=== PATIENT | female | born 1995 | race Caucasian/White ===

== ENCOUNTER 2019-12-08 11:49 | Emergency (ER) | payer OTHER, SELFPAY ==
[2019-12-08 12:00] VITALS: BP 132/88; PULSE 90; RESP 20; TEMP 36.5; O2SAT 100
--- NOTE | 2019-12-08 12:15 | ED.GENADULT ---
HPI - General Adult General Chief complaint: Urogenital-Female Stated complaint: Urogenital-female Time Seen by Provider: 12/08/19 12:15 Source: patient and RN notes reviewed Mode of arrival: ambulatory Limitations: no limitations History of Present Illness HPI narrative: 24-year-old female presents with urinary complaints for 1 day. Dysuria consist of burning, frequency, and urgency.? Azo at 07:00 this a.m with little relief.? Denies fever or chills. No significant pelvic pain. No vaginal discharge.? No concerns for STDs. Exacerbating factors urinating.? Denies hematuria or vaginal bleeding. Denies being , LMP unknown due to IUD being in place.? No flank pain. Denies nausea, vomiting, and abdominal pain.? Tolerating liquids well.? Remains active. The patient reports she have not been diagnosed with COVID-19. The patient reports she is not waiting for the results of a COVID-19 lab test. The patient reports she do not have fever, chills, weakness, fatigue, myalgia, or facial swelling. The patient reports she do not have a new or worsening cough or shortness of breath. Denies chest pain. The patient reports she do not have any rhinorrhea, congestion, sore throat, and diarrhea. Denies recent traveling. Denies concerns for COVID-19 or exposures been home with limited outdoor exposure except for essential household needs, work, and return home. At this time, patient is not suspected of having COVID-19. Some parts of this dictation were generated by voice recognition software and may contain typographical and/or grammatical inaccuracies. Related Data Allergies Allergy/AdvReac Type Severity Reaction Status Date / Time latex Allergy Mild Rash Verified 03/24/19 11:57 Sulfa (Sulfonamide Allergy Rash Verified 03/24/19 11:56 Antibiotics) Review of Systems Review of Systems: Narrative: CONSTITUTIONAL: Denies fever, chills, sweats. EYES: Denies visual changes, redness, discharge. ENT: Denies rhinorrhea, congestion, sore throat, otalgia. CARDIOVASCULAR: Denies chest pain, palpitations, edema. RESPIRATORY: Denies dyspnea, wheezing, cough. GASTROINTESTINAL: Denies abdominal pain, nausea, vomiting, diarrhea. GENITOURINARY: Complains of dysuria (burning, frequency, and urgency). Denies hematuria, abnormal discharge. SKIN: Denies rash or itching. MUSCULOSKELETAL: Denies acute back pain, joint pain, or myalgia. NEUROLOGIC: Denies numbness or focal weakness. PSYCHIATRIC: Denies anxiety or depression. All systems reviewed & are unremarkable except as noted in HPI and below. 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 Surgical History Surgical History (Updated 12/08/19 @ 12:35 by ELISSA Sam) History of tonsillectomy Family History Family History (Updated 12/08/19 @ 12:35 by ELISSA Sam) Father Alive and well Mother Alive and well Social History Social History (Updated 12/08/19 @ 12:36 by ELISSA Sam) Smoking status: Never smoker Second hand tobacco smoke exposure: No Alcohol intake: current Substance use: never Living arrangements: with family Occupation/Education: occupation Gender identity (if verbalized by the patient): Female Sexual Orientation (if Verbalized by the Patient): Straight or Heterosexual Comments At time of signature, agree with nurse past medical, surgical, social, and family history.? There is no relevant family history pertinent to the presenting complaint. Exam Narrative: Exam Narrative: GENERAL: This is a well-nourished, well-developed patient, in no apparent distress.? Talks in full sentences and ambulates with steady gait without dyspnea. HEAD: normocephalic, atraumatic. EYES: PERRL. Sclera clear/white. Vision is grossly intact. CARDIOVASCULAR: Regular rate and rhythm without murmurs, de leon
== END 2019-12-08 12:30 | disposition home or self-care (01) ==
PROVIDERS: Emergency Provider Nurse Practitioner Family
DX: R30.0 Dysuria (principal)
CPT/HCPCS: 81003; 99213; G0463

== ENCOUNTER 2021-04-03 10:10 | Emergency (ER) | payer OTHER, SELFPAY ==
[2021-04-03 10:21] VITALS: BP 114/77; PULSE 76; RESP 16; TEMP 36.4; O2SAT 100
--- NOTE | 2021-04-03 10:31 | ED.URI ---
HPI - URI/Sore Throat General Chief Complaint: Upper Respiratory Infection Stated Complaint: HEAD/CHEST CONGESTION/COUGH Time Seen by Provider: 04/03/21 10:31 Source: patient, RN notes reviewed and old records reviewed Mode of arrival: ambulatory Limitations: no limitations History of Present Illness HPI Narrative: 26 year old female who presents to [facility] care with complaints of burning cough with tightness for the past week. Patient reports that she has had some nasal congestion with drainage. Patient reports 3 weeks ago she had sinus congestion sore throat which seemed to resolve but presently for past week has had chest congestion with cough and nasal drainage. Patient reports she has noticed herself wheezing has had a history of bronchitis in the past. Patient reports she has had no fever chills or sweats or any body aches has had Covid vaccination. She states that she has been taking some Mucinex for her symptoms MD elicited complaint: cough Pertinent past history: other (Bronchitis) Related Data Allergies Allergy/AdvReac Type Severity Reaction Status Date / Time latex Allergy Mild Rash Verified 04/03/21 10:26 Sulfa (Sulfonamide Allergy Rash Verified 04/03/21 10:26 Antibiotics) Review of Systems Review of Systems: CONSTITUTIONAL: Denies fever, chills, or sweats. EYES: Denies visual changes, redness, or discharge. ENT: Positive rhinorrhea, congestion, no sore throat, pressure to ears. CARDIOVASCULAR: Denies chest pain, palpitations, or edema. RESPIRATORY: Positive cough, dyspnea with cough. GASTROINTESTINAL: Denies abdominal pain, nausea, vomiting, or diarrhea. GENITOURINARY: Denies dysuria or hematuria. SKIN: Denies rash or itching. MUSCULOSKELETAL: Denies back pain, joint pain, or myalgia. NEUROLOGIC: Denies headache, numbness, or weakness. PSYCHIATRIC: Denies anxiety or depression. 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 Surgical History Surgical History History of tonsillectomy Family History Family History (Updated 04/03/21 @ 10:49 by Nancy Nicholas NP) Father Alive and well Mother Alive and well Asthma Sibling Asthma Grandparent Breast cancer Social History Social History Smoking status: Never smoker Second hand tobacco smoke exposure: No Alcohol intake: current Substance use: never Gender identity (if verbalized by the patient): Female Sexual Orientation (if Verbalized by the Patient): Straight or Heterosexual Comments At time of signature, agree with nursing past medical, surgical, social and family history. There is no relevant family history pertinent to the presenting complaint Exam Narrative: GENERAL: Ill-appearing, well-nourished, and in no acute distress. HEAD: Normocephalic, atraumatic. EYES: PERRLA and EOMI. ENT: Nares swollen with clear rhinorrhea no epistaxis. Mucous membranes moist. TMs normal with dull light reflex, throat red no exudates or lesions, tonsils absent NECK: Supple. No lymphadenopathy CHEST: Scattered wheezing on auscultation. No respiratory distress. SaO2 100% on room air acute cough HEART: Regular rate and rhythm. No murmur heard. Normal peripheral pulses. ABDOMEN: Soft, nontender, nondistended, normal active bowel sounds. EXTREMITIES: Normal range of motion. No edema. SKIN: Warm, dry, no rash. NEURO: No focal deficits. Alert and oriented x3. Course Vital Signs Vital signs: Vital Signs Temperature 36.4 C 04/03/21 10:21 Pulse Rate 76 04/03/21 10:21 Respiratory Rate 16 04/03/21 10:21 Blood Pressure 114/77 04/03/21 10:21 Pulse Oximetry 100 04/03/21 10:21 Temperature 36.4 C 04/03/21
== END 2021-04-03 10:48 | disposition home or self-care (01) ==
PROVIDERS: Emergency Provider Registered Nurse
DX: J40 Bronchitis, not specified as acute or chronic (principal); J06.9 Acute upper respiratory infection, unspecified
CPT/HCPCS: 99213; G0463

== ENCOUNTER 2022-05-04 16:48 | Emergency (ER) | payer OTHER, SELFPAY ==
[2022-05-04 17:01] VITALS: BP 112/74; PULSE 78; RESP 18; TEMP 36.8; O2SAT 100
--- NOTE | 2022-05-04 17:24 | ED.EAR ---
HPI - Ear Problem General Chief complaint: Ear Stated complaint: bilateral ear pain Time Seen by Provider: 05/04/22 17:20 Source: patient Mode of arrival: ambulatory Limitations: no limitations History of Present Illness HPI Narrative: 27-year-old female presented for complaint of left ear pain for 1 week, and started with right ear pain this morning. States pain is worse when she lays on the left ear. Endorses had pressure in the forehead. She denies Tinnitus, dizziness, sinus congestion, sore throat, nausea, vomiting, diarrhea, fevers or chills. symptoms improved with Sudafed. Complaint: ear pain Related Data Allergies Allergy/AdvReac Type Severity Reaction Status Date / Time latex Allergy Mild Rash Verified 05/04/22 17:13 Sulfa (Sulfonamide Allergy Rash Verified 05/04/22 17:13 Antibiotics) Review of Systems Review of Systems: CONSTITUTIONAL: Denies malaise, chills, or fever. EYES: Denies visual changes, redness, or discharge. ENT: Denies rhinorrhea, congestion, sinus pain, and sore throat. Reports ear pain CARDIOVASCULAR: Denies chest pain, palpitations, or edema. RESPIRATORY: Denies cough or dyspnea. GASTROINTESTINAL: Denies abdominal pain, nausea, vomiting, diarrhea SKIN: Denies rash or itching. MUSCULOSKELETAL: Denies myalgia. NEUROLOGIC: Denies headache. 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 There is no relevant family history pertinent to the presenting complaint Exam Narrative: GENERAL: Well-appearing EYES: PERRLA, conjunctivae clear ENT: Nares clear. Mucous membranes moist. TMs pearly marrufo with dull light reflex and clear effusion bilaterally; no tragal tenderness. Oropharynx not erythematous without lesions. NECK: Supple. No lymphadenopathy CHEST: Clear to auscultation, breath sounds equal. HEART: Regular rate and rhythm. No murmur heard. SKIN: Warm, dry, no rash. NEURO: Alert and oriented x3. PSYCH: Normal mood and affect Course Course Emergency Course: Patient is aware of diagnosis, understands and agrees to treatment plan. Anticipatory guidance given. Patient agrees to follow-up as directed and is aware of reasons to seek care at the emergency department. Portions of this record may have been created with voice recognition software Level of Care: Express Care Visit Vital Signs Vital signs: Vital Signs Temperature 98.3 F 05/04/22 17:01 Pulse Rate 78 05/04/22 17:01 Respiratory Rate 18 05/04/22 17:01 Blood Pressure 112/74 05/04/22 17:01 Pulse Oximetry 100 05/04/22 17:01 Oxygen Delivery Room Air 05/04/22 17:01 Temperature 98.3 F 05/04/22 17:01 Pulse Rate 78 05/04/22 17:01 Respiratory Rate 18 05/04/22 17:01 Blood Pressure 112/74 05/04/22 17:01 Pulse Oximetry 100 05/04/22 17:01 Oxygen Delivery Room Air 05/04/22 17:01 Reviewed Medical Decision Making MDM Narrative Medical decision making narrative: Advised supportive measures and signs/symptoms to go to the ER. Eduar
== END 2022-05-04 17:34 | disposition home or self-care (01) ==
PROVIDERS: Emergency Provider Nurse Practitioner Family
DX: H66.93 Otitis media, unspecified, bilateral (principal)
CPT/HCPCS: 99213; G0463

== ENCOUNTER 2022-05-10 11:04 | Emergency (ER) | payer OTHER, SELFPAY ==
[2022-05-10 11:12] VITALS: BP 108/69; PULSE 75; RESP 16; TEMP 36.9; O2SAT 100
--- NOTE | 2022-05-10 11:20 | ED.EAR ---
HPI - Ear Problem General Chief complaint: Ear Stated complaint: ear pain Time Seen by Provider: 05/10/22 11:21 Source: patient and RN notes reviewed Mode of arrival: ambulatory Limitations: no limitations History of Present Illness HPI Narrative: 27-year-old female presents concern for bilateral ear pain, headache. Reports she began having ear pain about 2 weeks ago she was treated for possible sinusitis with Augmentin and Motrin. She reports symptoms have worsened and not improved with taking these medications. She reports she has been taking the Augmentin for about a week. She reports she is taking Sudafed headache medication without relief. She reports a history of migraine headaches but has not had 1 since she was in middle school. She reports some nausea, she attributed that to the Augmentin. MD Complaint: ear pain Related Data Allergies Allergy/AdvReac Type Severity Reaction Status Date / Time latex Allergy Mild Rash Verified 05/04/22 17:13 Sulfa (Sulfonamide Allergy Rash Verified 05/04/22 17:13 Antibiotics) Review of Systems Review of Systems: CONSTITUTIONAL: Denies malaise, chills, sweats, or fever. EYES: Denies visual changes, redness, or discharge. ENT: Denies rhinorrhea, congestion, and sore throat. Reports bilateral ear pain, sinus pain and pressure CARDIOVASCULAR: Denies chest pain, palpitations, or edema. RESPIRATORY: Denies cough. Denies dyspnea. GASTROINTESTINAL: Denies abdominal pain, nausea, vomiting, diarrhea SKIN: Denies rash or itching. MUSCULOSKELETAL: Denies myalgia. NEUROLOGIC: Reports headache. 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 There is no relevant family history pertinent to the presenting complaint Exam Narrative: GENERAL: Well-appearing, well-nourished, and in no acute distress. HEAD: Normocephalic EYES: PERRLA, conjunctivae clear ENT: Nares clear, no discharge. Mucous membranes moist. TM pearly marrufo with sharp light reflex bilaterally; no tragal tenderness. Oropharynx not erythematous without lesions. Tonsils not enlarged and without exudate, no drooling, no hoarseness, no trismus, uvula midline. NECK: Supple. No lymphadenopathy CHEST: Clear to auscultation, breath sounds equal. No wheezing, rhonchi, rales, or stridor. No respiratory distress, speaks in full sentences. HEART: Regular rate and rhythm. No murmur heard. SKIN: Warm, dry, no rash. NEURO: Alert and oriented x3. No focal deficits PSYCH: Normal mood and affect Course Course Emergency Course: Advised patient to take prednisone for sinus pressure and ear pain, if her symptoms do not improve she was instructed to follow-up with ENT Patient is aware of diagnosis, understands and agrees to treatment plan. Anticipatory guidance given. Patient agrees to follow-up as directed and is aware of reasons to seek care at the emergency department. Portions of this record may have been created with voice recognition software Level of Care: Express Care Visit Vital Sig
[2022-05-10] MEDS: KETOROLAC (*BKC) 60 MG/2 ML VIAL IM (11:39)
== END 2022-05-10 12:10 | disposition home or self-care (01) ==
PROVIDERS: Emergency Provider Nurse Practitioner
DX: H92.03 Otalgia, bilateral (principal); R51.9 Headache, unspecified
CPT/HCPCS: 96372; 99213; G0463; J1885

== ENCOUNTER 2022-10-11 08:14 | Emergency (ER) | payer OTHER, SELFPAY ==
[2022-10-11 08:42] VITALS: BP 109/60; PULSE 97; RESP 18; TEMP 36.8; O2SAT 100
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
== END 2022-10-11 10:00 | disposition home or self-care (01) ==
PROVIDERS: Emergency Provider Nurse Practitioner Family
DX: J40 Bronchitis, not specified as acute or chronic (principal); O99.511 Diseases of the respiratory system complicating pregnancy, first trimester; Z3A.13 13 weeks gestation of pregnancy
CPT/HCPCS: 87081; 87880; 99213; G0463

== ENCOUNTER → 2022-12-03 15:40 | Outpatient (CLI) | payer OTHER, SELFPAY ==
--- NOTE | ~2022-12-03 | US_ITS ---
EXAMINATION: US OB /maternal detail DATE: 12/03/2022 16:38 INDICATION: anatomic survey. TECHNIQUE: Real-time ultrasound of the pelvis was performed. COMPARISON: None. FINDINGS: There is a single living fetus in breech presentation. The placenta is posterior, 3.8 cm from the ce rvix. The cervical length is 5.3 cm on transabdominal images, which is normal. heart rate is 14 7 beats per minute (bpm). The amniotic fluid volume is subjectively normal. The following biometric data were obtained: Biparietal diameter (BPD): 4.6 cm; head circumference (HC): 17.7 cm; abdominal circumference (AC): 15 .3 cm; femur length (FL): 3.1 cm. These measurements are concordant. Estimated weight is 329 g +/- 49 g, which correlates with the 40th percentile when 04/21/23 is used as estimated date of delivery. As single measurements, these parameters are each equal to the following estimated gestational ages: BPD: 20 weeks 0 days. HC: 20 weeks 1 days. AC: 20 weeks 4 days. FL: 19 weeks 3 days. estimated gestational age based solely on measurements from this exam is 20 weeks 0 days +/- 1 weeks 3 days. The cerebral ventricles, cerebellum, cisterna magna, nuchal fold, lip, and visualized portions of the spine are normal. The heart is normal. The diaphragm, stomach, kidneys, and bladder are normal. Ther e are two umbilical arteries to yield a 3-vessel cord. The cord insertion is normal. IMPRESSION: 1. Single living fetus in breech presentation. 2. Estimated weight is 329 g +/- 49 g, which correlates with the 40th percentile when 04/21/23 is used as estimated date of delivery. 3. Normal anatomic survey. Reviewed, dictated and finalized at location A. IMPRESSION: 1. Single living fetus in breech presentation. 2. Estimated weight is 329 g +/- 49 g, which correlates with the 40th pe rcentile when 04/21/23 is used as estimated date of delivery. 3. Normal anatomic survey.
== END ==
PROVIDERS: PCP Obstetrics & Gynecology Gynecologic Oncology; Visit Provider Obstetrics & Gynecology Gynecologic Oncology
DX: Z36.9 Encounter for antenatal screening, unspecified (principal)
CPT/HCPCS: 76805

== ENCOUNTER 2024-11-23 01:26 | Emergency (ER) | payer BC, SELFPAY ==
[2024-11-23] VITALS (9 sets, daily range): BP systolic 107–111; BP diastolic 69–79; PULSE 82–107; RESP 11–21; TEMP 36.7; O2SAT 100
--- OUTSIDE RECORDS SUMMARY | 2024-11-23 01:28 | XMS_ITS | Continuity of Care Document ---
Author Organization [facility] Address [address] [place] [address] Phone Care Team Providers Care Protection Chief [employer] Name Role Phone Alpesh OTR/L, CHT, Joe Unavailable Unava ilable Procedures Procedure Date Therapeutic Exercise Therapeutic Exercise Orthotic Mgmt and Training Long Arm Splint wrist included 18 Advance Directives Directive Yes / No Effective Date File Name No Information Encounters Encounter Description Practice Location Reason(s) For Visit Diagnoses Date Provider Providers Copied on Encounter [facility], [address], [place], [place], [id number], tel:[phone] [facility]ows No Information 8 Alpesh Diaz. . Referring Provider: Delio Maher [facility] [address], [place], [address]. tel:[phone] [facility], [address], [place], [place], [id number], tel:[phone] David Meadows Pain in left elbowStiffness of left elbow, not elsewhere classifiedOth symptoms and signs involving the musculoskeletal systemParesthesia of skinLesion of ulnar nerve, left upper limb May-2 8 Alpesh Diaz. . Referring Provider: Long Maher1 [facility] [address], [place], [address]. tel:[phone] Family History Family Member Type Diagnosis Age At Onset No Information Payers Payer name Insurance type Covered green party ID Davie bailey(s) [facility] [id number] Social History Type Description Quantity Date Captured Comments Sex Female Smoking Status No Information Chief Complaint And Reason For Visit No Information Reason For Referral Reason For Referral No Information History Of Present Illness Encounter Date Complaint History Of Prese nt Illness No Information Functional Status Date Functional Assessmen t No Information Instructions Date Instruction Additional Infor mation No Information Assessments Type Assessment Date No Information Patient Care Teams Name Effective Dates (start - stop) Status Members No Information
--- OUTSIDE RECORDS SUMMARY | 2024-11-23 01:28 | XMS_ITS | Clinical Summary ---
Author Organization [facility] Address [address] [place] [address] Care Team Providers Care Elevated Guard Name Role Phone Quinton Mckeon MD Primary Care Provi nataly Rhonda Goddard MD Unavailable [phone] Allergies Active Allergy Reactions Criticality Noted Date Comments Latex Itching Low Medications lidocaine (XYLOCAINE) 5 % ointment Every 6-8 hours hours to left elbow PRN 30 g 01/08/20 18 Active Additional Information Patient not taking.Reported on 01/15/2020 levonorgestrel (KYLEENA) IUD 19.5 mg by intrauterine route Active DULoxetine DR (CYMBALTA) 30 mg capsuleIndications: Chronic Musculoskeletal Pain,Neuropathic Pain TAKE TWO TABLETS DAILY 180 capsule 08/06/19 19 Active Additional Information Patient not taking.Reported on 01/15/2020 acetaminophen-codei ne (TYLENOL with CODEINE #3) 300-30 mg per tablet ONE TAB Q 8 HOURS PRN PAIN 20 tablet 08/06/19 19 Active Additional Information Patient not taking.Reported on 01/15/2020 pregabalin (LYRICA) 75 mg capsule Take 1 tablet BID 60 capsule 08/09/19 21 Active diclofenac sodium (VOLTAREN) 1 % gelIndications:Elbo w Pain Apply 2 g topically 3 (three) times a day as needed (Elbow Pain) 1 Tube 09/15/19 21 Active Active Problems Problem Noted Date Diagnosed Date 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, left arm , 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 Injury of ulnar nerve 04/26/2017 Laceration of elbow 09/19/2015 Infectious warts 11/15/2011 Surgical History Surgery Date Site/Laterality Comments ARM SURGERY Left Family History Medical History Relation Name Comments No Known Problems Father No Known Problems Mother Relation Name Status Comments Father Alive Mother Alive Social History Tobacco Use Types Packs/Day Years Used Date Smoking Tobacco: Never Smokeless Tobacco: Never Alcohol Use Standard Drinks/Week Comments Yes 0 (1 standard drink = 0.6 oz pur e alcohol) AUDIT-C Answer Date Recorded Frequency of Alcohol Consumption Monthly or less 01/15/2020 Average Number of Drinks 3 or 4 020 Frequency of Binge Drinking Not on file 12/28 Personal Safety Answer Date Recorded Getting School Help Needed Not on file 06/23 Comments No Sex and Gender Information Value Date Recorded Sex Assigned at Not on file 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 Gender Identity Not on file Sexual Orientation Not on file 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 Not on file Not on file Obstetrics History Para Term AB IAB SAB Ectopic Multiple Livin g Live Births 0 0 0 0 0 0 0 0 0 0 0 Last Filed Vital Signs Vital Sign Reading Time Taken Comments Blood Pressure 118/76 01/15/2020 9:24 AM CDT Pulse 96 08/05/2018 9:37 AM CDT Temperature 36.6 C (97.9 F) 08/05/2018 9:37 AM CDT Respiratory Rate 16 08/05/2018 9:37 AM CDT Oxygen Saturation 98% 08/05/2018 9:37 AM CDT Inhaled Oxygen Concentration - - Weight 70.8 kg (156 lb) 01/15/2020 9:24 AM CDT Height 165.1 cm (5' 5) 08/05/2018 9:37 AM CDT Body Mass Index 25.96 08/05/2018 9:37 AM CDT Plan of Treatment Not on file Insurance HEALTHCARE HMO HEALTHCARE HMO [facility] HEALTHCARE HMO Care Teams Elevated Guard Relationship Specialty Start Date End Date Quinton Mckeon MD [facility] [place] [address] PCP - General Family Medicine 07/29/18 Rhonda Goddard MD [address] [facility] [place] [address] 07/29/18
--- OUTSIDE RECORDS SUMMARY | 2024-11-23 01:28 | XMS_ITS | Encounter Summary ---
Author Organization [facility] Address [address] [place] [address] Phone Care Team Providers Care Experimental Rocketsled Mechanic Name Role Phone Rhonda Goddard MD Primary Care Provider [phone] Quinton Mckeon MD Primary Care Provi nataly Rhonda Goddard MD Unavailable [phone] Encounter Details Date Type Department Care Team (Latest Contact Info) Description 09/06/2017 Orders Only [facility] Scanning, Provider Social History Tobacco Use Types Packs/Day Years Used Date Smoking Tobacco: Never Comments Unknown Sex and Gender Information Value Date Recorded Sex Assigned at Not on file 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 Gender Identity Not on file Sexual Orientation Not on file documented as of this encounter Plan of Treatment Not on file documented as of this encounter Procedures Procedure Name Priority Date/Time Associated Diagnosis Comments SCAN - RADIOLOGY/IMAGING 09/06/2017 documented in this encounter Results * SCAN - RADIOLOGY/IMAGING (09/06/2017) Anatomical Region Laterality Modality Other us Provider Scanning Final Result documented in this encounter Visit Diagnoses Not on filedocumented in this encounter Care Teams Experimental Rocketsled Mechanic Relationship Specialty Start Date End Date Rhonda Goddard MD [address] [place] [address] PCP - General 06/25/17 07/28/18 Quinton Mckeon MD [address] [place] [address] PCP - General Family Medicine 07/29/18 Rhonda Goddard MD [address] [place] [address] 07/29/18 documented as of this encounter
--- OUTSIDE RECORDS SUMMARY | 2024-11-23 01:28 | XMS_ITS | Clinical Summary ---
Author Organization [facility] Address [address] [place] [address] Care Team Providers Care Agile Tester Name Role Phone Darvin Espinoza MD Primary Care Provider [phone] Allergies Active Allergy Reactions Criticality Noted Date Comments Latex Itching Low 04/02/2023 Medications vitamin ( PLUS) 27-1 MG tablet Take 1 tablet by mouth daily. Active aspirin EC (ECOTRIN) 81 MG tablet Take 1 tablet (81 mg total) by mouth daily. Active Active Problems Patient Care Coordination No te Formatting of this note migh t be different from the original. Pt is on her third ulnar nerve surgery after a laceration to the ulnar nerve. Problem Noted Date Diagnosed Date Encounter for elective induction of labor ([facility]) 04/17/2023 Encounters Date Type Department Care Team Description 09/09/2024 Mezmeriz Message Enc HEALTH INFO SRVCS [facility] Provider Name Change request from Last 3 Months Immunizations Immunization Administration Dates Next Due MMR (MMRII) 04/19/2023 Social History Tobacco Use Types Packs/Day Years Used Date Smoking Tobacco: Never Smokeless Tobacco: Never Tobacco Cessation:Counseling Given: Not Answered Alcohol Use Standard Drinks/Week Comments Not Currently 0 (1 standard drink = 0.6 oz pur e alcohol) [facility] Utilities Answer Date Recorded In the past 12 months has th e [employer], gas, oil, or water company threatened to shut off services in your home? No 04/17/2023 Humiliation, Afraid, Rape, and Kick questionnair e Answer Date Recorded Within the last year, have y ou been afraid of your partner or ex-partner? No 04/17/2023 Within the last year, have y ou been humiliated or emotionally abused in other ways by your partner or ex-partner? No Within the last year, have y ou been kicked, hit, slapped, or otherwise physically hurt by your partner or ex-partner? No 04/17/2023 Within the last year, have y ou been raped or forced to have any kind of sexual activity by your partner or ex-partner? No 04/17/2023 Social Connection and Isolat ion Panel [NHANES] Answer Date Recorded In a typical week, how many times do you talk on the phone with family, friends, or neighbors? More than three times a week 04/17/2023 How often do you get togethe r with friends or relatives? Three times a week 04/17/2023 How often do you attend chur ch or gnosticism services? Never 04/17/2023 Do you belong to any clubs o r organizations such as bahai groups, unions, fraternal or athletic groups, or school groups? No 04/17/2023 How often do you attend meet ings of the clubs or organizations you belong to? Never 04/17/2023 Are you , , di vorced, , never , or living with a partner? Never 04/17/2023 AUDIT-C Answer Date Recorded Q1: How often do you have a drink containing alc ohol? Monthly or less 04/17/2023 Q2: How many drinks containi ng alcohol do you have on a typical day when you are drinking? 1 or 2 04/17/2023 Q3: How often do you have si x or more drinks on one occasion? Never 04/17/2023 Overall Financial Resource Strain (CARDIA) Answe r Date Recorded How hard is it for you to pa y for the very basics like food, housing, medical care, and heating? Not hard at all 04/17/2023 [facility] [place] of Occupat ional Health - Occupational Stress Questionnaire Answer Date Recorded Do you feel stress - tense, restless, nervous, or anxious, or unable to sleep at night because your mind is troubled all the time - these days? Not at all 04/17/2023 Exercise Vital Sign Answer Date Recorde d On average, how many days pe r week do you engage in moderate to strenuous exercise (like a brisk walk)? 3 days 04/17/2023 On average, how many minutes do you engage in exercise at this level? 30 min 04/17/2023 Hunger Vital Sign Answer Date Recorded Within the past 12 months, y ou worried that your food would run out before you got the money to buy more. Never true 04/17/20 23 Within the past 12 months, t he food you bought just didn't last and you didn't have money to get more. Never true 04/17/2023 PRAPARE - Transportation Answer Date Re corded In the past 12 months, has l ack of transportation kept you from medical appointments or from getting medications? No 03/30 In the past 12 months, has l ack of transportation kept you from meetings, work, or from getting things needed for daily living? No 04/17/2023 Housing Stability Vital Sign Answer Sandoval e Recorded In the last 12 months, was t here a time when you were not able to pay the mortgage or rent on time? No 04/17/2023 In the last 12 months, how many places have you lived? 1 04/17/2023 In the last 12 months, was t here a time when you did not have a steady place to sleep or slept in a long term (including now)? No 04/17/2023 Comments No Sex and Gender Information Value Date Recorded Sex Assigned at Not on file Legal Sex Female 5:20 PM CDT Gender Identity Not on file Sexual Orientation Not on file Last Filed Vital Signs Vital Sign Reading Time Taken Comments Blood Pressure 104/80 04/24/2023 9:15 AM SHAKER REPAIRER Pulse 88 04/24/2023 9:15 AM SHAKER REPAIRER Temperature 36.8 C (98.2 F) 04/24/2023 9:15 AM SHAKER REPAIRER Respiratory Rate 20 04/19/2023 6:50 AM SHAKER REPAIRER Oxygen Saturation 98% 04/24/2023 9:15 AM SHAKER REPAIRER Inhaled Oxygen Concentration - - Weight 78.5 kg (173 lb) 04/17/2023 5:04 AM SHAKER REPAIRER Height 160 cm (5' 3) 04/17/2023 5:04 AM SHAKER REPAIRER Body Mass Index 30.65 04/17/2023 5:04 AM SHAKER REPAIRER Plan of Treatment Health Maintenance Due Date Last Done Comments Cervical Cancer Screening Pa p Smear (Age 21 to 29) Every 3 Years 1997 Cervical Cancer Screening 1997 Annual Physical 02/12/2000 DTaP, Tdap and Td Vaccines ( 1 - Tdap) 02/12/2016 Hepatitis B Vaccines (1 of 3 - 19+ 3-dose series) 02/12/2016 COVID-19 Vaccine ( - 2023-2 5 season) 2023 HPV Vaccines (1 - 3-dose SCD M series) 02/12/2024 PHQ-2 (Physician [place]) 04/29/2024 Hepatitis C Completed 08/27/2022 Meningococcal B Vaccine Aged Out No l onger eligible based on patient's age to complete this topic Meningococcal Vaccine Aged Out No suzie ines eligible based on patient's age to complete this topic Pneumococcal Vaccine: Pediat rics (0 to 5 Years) and At-Risk Patients (6 to 49 Years) Aged Out No longer eligi ble based on patient's age to complete this topic RSV Immunizations Under 20 Months Aged Out No longer eligible based on patient's age to complete this topic Procedures Procedure Name Priority Date/Time Associated Diagnosis Comments HEPATITIS C ANTIBODY Routine 08/27/2022 10:38 AM CDT Screening for -associate d plasma protein A (HHS/HCC) from Last 3 Months or Most Recently Relevant to Health Maintenance Results * HEPATITIS C ANTIBODY (08/27/2022 10:38 AM CDT) HEPATITIS C AB NON-REACTI VE NON-REACTI VE 08/27/2022 8:06 PM CDT [facility] 08/27/2022 10:3 8 AM CDT Tess Ward CNM LABORATORY Final Result [facility] [address] [place] [address], from Last 3 Months or Most Recently Relevant to Health Maintenance Insurance MEDICAID BLUE [place] BLUE [facility] Advance Directives * Full Code (Latest Code Status on File) Date Activated Date Inactivated Comments 04/17/2023 5:16 AM 04/17/2023 11:37 PM * Full Code Date Activated Date Inactivated Comments 04/09/2023 10:56 AM 04/09/2023 2:13 PM Care Teams Agile Tester Relationship Specialty Start Date End Date Darvin Espinoza MD [address] [place] [address] PCP - General INTERNAL MEDICINE 05/28/22
--- OUTSIDE RECORDS SUMMARY | 2024-11-23 01:28 | XMS_ITS | Encounter Summary ---
Author Organization [facility] Address [address] [place] [address] Phone Care Team Providers Care Cloth Tester Quality Name Role Phone Rhonda Goddard MD Primary Care Provider [phone] Quinton Mckeon MD Primary Care Provi nataly Rhonda Goddard MD Unavailable [phone] Encounter Details Date Type Department Care Team (Late st Contact Info) Description 04/08/2018 Orders Only [facility] PMR [phone] Scanning, Provider Social History Tobacco Use Types Packs/Day Years Used Date Smoking Tobacco: Never Comments Unknown Sex and Gender Information Value Date Recorded Sex Assigned at Not on file 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 Gender Identity Not on file Sexual Orientation Not on file documented as of this encounter Plan of Treatment Not on file documented as of this encounter Procedures Procedure Name Priority Date/Time Associated Diagnosis Comments SCAN - RADIOLOGY/IMAGING 04/08/2018 documented in this encounter Results * SCAN - RADIOLOGY/IMAGING (04/08/2018) Anatomical Region Laterality Modality Other us Provider Scanning Edited Result - Final documented in this encounter Visit Diagnoses Not on filedocumented in this encounter Care Teams Cloth Tester Quality Relationship Specialty Start Date End Date Rhonda Goddard MD [address] [facility] [place] [place] [address] PCP - General 06/25/17 07/28/18 Quinton Mckeon MD [address] [place] [address] PCP - General Family Medicine 07/29/18 Rhonda Goddard MD [address] [facility] [place] [address] 07/29/18 documented as of this encounter
--- OUTSIDE RECORDS SUMMARY | 2024-11-23 01:28 | XMS_ITS | Patient Health Record ---
Author Organization [facility] Address [address] [place], [place] [id number] Care Team Providers Care Records Management Analyst Name Role Phone BRISAJENNDARRIN Unavailable [phone] Rhonda Goddard Unavailable Unavailable Reason For Referral No Information Plan Of Treatment No Information Insurance Providers Payer Name Payer Address Payer Phone Subscriber Number Group Number Insured Name Patient Relationship to Insured Coverage Start Date [facility]age End [facility] [address] [place], [place] [id number] MIRANDA DICKERSON [facility]ly [facility] Child - Insured has Financial Responsibility
--- OUTSIDE RECORDS SUMMARY | 2024-11-23 01:28 | XMS_ITS | Encounter Summary ---
Author Organization [facility] Address [address] [place] [address] Care Team Providers Care Tender Labor Name Role Phone Darvin Espinoza MD Primary Care Provider [phone] Encounter Details Date Type Department Care Team (Late st Contact Info) Description 09/09/2024 [employer]eenworld Message [email or web address] HEALTH INFO SRVCS [facility] Provider Name Change request Social History Tobacco Use Types Packs/Day Years Used Date Smoking Tobacco: Never Smokeless Tobacco: Never Alcohol Use Standard Drinks/Week Comments Not Currently 0 (1 standard drink = 0.6 oz pur e alcohol) [facility] Utilities Answer Date Recorded In the past 12 months has [facility] [employer], gas, oil, or water [employer] threatened to shut off services in your [...] 04/17/2023 How often do you attend chur or mandaen services? Never 04/17/2023 Do you belong to any clubs o r organizations such as hoahaoism groups, unions, fraternal or athletic groups, or [...] and heating? Not hard at all 04/17/2023 [facility]at ionwa Health - Occupational Stress Questionnaire Answer Date [...] place to sleep or slept in a assisted (including now)? No 04/17/2023 Comments No Sex and Gender Information Value Date Recorded Sex Assigned at Not on file Legal Sex Female 5:20 PM CDT Gender Identity Not on file Sexual Orientation Not on file documented as of this encounter Functional Status * Are you deaf or do you have serious difficulty hearing Answer Date of Assessment Author Status No 04/17/2023 6:14 AM Jailene Huerta RN Active * Are you blind or do you have serious difficulty seeing, even when wearing glasses? Answer Date of Assessment Author Status No 04/17/2023 6:14 AM Jailene Huerta RN Active * Do you have serious difficulty walking or climbing stairs? Answer Date of Assessment Author Status No 04/17/2023 6:14 AM Jailene Huerta RN Active * Do you have difficulty dressing or bathing? Answer Date of Assessment Author Status No 04/17/2023 6:14 AM Jailene Huerta RN Active * Because of a physical, mental, or emotional condition, do you have difficulty doing errands alone such as visiting a doctor's office or shopping? Answer Date of Assessment Author Status No 04/17/2023 6:14 AM Jailene Huerta RN Active documented as of this encounter Mental Status * Because of a physical, mental, or emotional condition, do you have serious difficulty concentrating, remembering, or making decisions? Answer Entry Date Author Status No 04/17/2023 6:14 AM CORN CROP SUPERVISOR Jailene Yan, RN Active documented in this encounter Plan of Treatment Not on file documented as of this encounter Visit Diagnoses Not on filedocumented in this encounter Care Teams Tender Labor Relationship Specialty Start Date End Date Darvin Espinoza MD [address] [place] [address] PCP - General INTERNAL MEDICINE 05/28/22 documented as of this encounter
--- OUTSIDE RECORDS SUMMARY | 2024-11-23 01:28 | XMS_ITS | Referral Summary ---
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
[2024-11-23] MEDS: ACETAMINOPHEN 325 MG TABLET 650 MG PO (01:49)
[2024-11-23] MEDS: METOCLOPRAMIDE HCL INJ 10 MG/2 ML VIAL IV PUSH (01:50)
[2024-11-23] MEDS: FAMOTIDINE 20 MG/2 ML VIAL IV PUSH (01:50)
[2024-11-23] MEDS: LACTATED RINGERS 1,000 ML 999 ML IV CONT (01:50)
--- OUTSIDE RECORDS SUMMARY | 2024-11-23 01:51 | XMS_ITS | Referral Summary ---
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
--- OUTSIDE RECORDS SUMMARY | 2024-11-23 01:51 | XMS_ITS | Encounter Summary ---
Author Organization [facility] Address [address] [place] [address] Phone Care Team Providers Care Administrative Assistant Office Manager Name Role Phone Rhonda Goddard MD Primary Care Provider [phone] Quinton Mckeon MD Primary Care Provi nataly Rhonda Goddard MD Unavailable [phone] Encounter Details Date Type Department Care Team (Latest Contact Info) Description 09/06/2017 Orders Only [facility] GENER[facility] Scanning, Provider Social History Tobacco Use Types Packs/Day Years Used Date Smoking Tobacco: Never Comments Unknown Sex and Gender Information Value Date Recorded Sex Assigned at Not on file Legal 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
--- OUTSIDE RECORDS SUMMARY | 2024-11-23 01:51 | XMS_ITS | Clinical Summary ---
Author Organization [facility] at [facility] Address [address] [place] [phone] Care Team Providers Care Rental Salesperson Name Role Phone Quinton Mckeon MD Primary Care Provi nataly Rhonda Goddard MD Unavailable [phone] Allergies Active Allergy Reactions Criticality Noted [...] on file Legal Sex Female 11:38 PM HAND CROCHETER Gender Identity Not on file Sexual Orientation [...] on file Insurance HEALTHCARE HMO HEALTHCARE HMO [facility] HEALTHCARE HMO Care Teams Rental Salesperson Relationship Specialty Start Date End Date Quinton Mckeon MD [facility][note 3][address] [place] [address] PCP - General Family Medicine 07/29/18 Rhonda Goddard MD [address] [facility] [place] [place] [address] 07/29/18
--- OUTSIDE RECORDS SUMMARY | 2024-11-23 01:53 | XMS_ITS | Encounter Summary ---
Author Organization [facility] Address [address] [place] [address] Phone Care Team Providers Care Bus Inspector Name Role Phone Rhonda Goddard MD Primary Care Provider [phone] Quinton Mckeon MD Primary Care Provi nataly Rhonda Goddard MD Unavailable [phone] Encounter Details Date Type Department Care Team (Late st Contact Info) Description 04/08/2018 Orders Only [facility] [phone] Scanning, Provider Social History Tobacco Use Types Packs/Day Years Used Date Smoking Tobacco: Never Comments Unknown Sex and Gender Information Value Date Recorded Sex Assigned at Not on file 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
[2024-11-23 01:56] LABS: Hematocrit 38.1 % (37.0-47.0); Hemoglobin 12.8 g/dL (12.0-15.0); Immature Granulocyte Percent A 0.3 % (0-0.5); Lymphocytes Absolute Auto 3.53 K/mm3 (0.9-3.2); Mean Corpuscular HGB Conc 33.6 g/dl (32-36); Mean Corpuscular Hemoglobin 29.3 pg (26-34); Mean Corpuscular Volume 87.2 fl (80-100); Nucleated Red Blood Cells Absolute Auto 0.000 K/mm3 (0.0-0.012); Nucleated Red Blood Cells Perc 0.0 % (0.0-0.2); Platelet Count Result 250 k/mm3 (150-375); Red Blood Count 4.37 M/mm3 (4.2-5.4); White Blood Count 11.8 K/mm3 (4.5-10.0)
[2024-11-23 02:02] LABS: Alanine Aminotransferase 11 U/L (6-35); Albumin Level 4.0 g/dL (3.5-5.1); Alkaline Phosphatase 50 U/L (38-126); Anion Gap 7 mmol/L (4-12); Aspartate Amino Transferase 19 U/L (14-36); Bilirubin,Total 0.3 mg/dL (0.2-1.3); Blood Urea Nitrogen 8 mg/dL (7-17); Calcium 8.8 mg/dL (8.4-10.2); Carbon Dioxide 23 mmol/L (22-30); Chloride 103 mmol/L (98-107); Estimated Glomerular Filt Rate > 60; Glucose 100 mg/dL (65-110); Lipase 75 U/L (23-300); Potassium 3.6 mmol/L (3.4-5.0); Sodium 133 mmol/L (137-145); Total Protein 7.2 g/dL (6.3-8.2)
--- NOTE | 2024-11-23 02:29 | ED_ITS ---
HPI - Abdominal Pain General Chief Complaint: Abdominal Pain Stated Complaint: abd pain 7 weeks Time Seen by Provider: 11/23/24 01:27 History of Present Illness HPI narrative: Patient is 7 weeks , had an early dinner around 4 of burgers, and had some popsicles in the evening, when she started having severe pain to her right upper quadrant, with associated nausea vomiting. Upon arrival to the ER her pain has largely subsided but she still feels nauseous but has not had symptoms like this in the past. 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 Surgical History Surgical History History of tonsillectomy Family History Family History Father Alive and well Mother Alive and well Asthma Sibling Asthma Grandparent Breast cancer Social History Social History Smoking status: Never smoker Second hand tobacco smoke exposure: No Alcohol intake: current Substance use: never Living arrangements: with family Occupation/Education: occupation Gender identity (if verbalized by the patient): Female Sexual Orientation (if Verbalized by the Patient): Straight or Heterosexual Exam 2 Narrative: EXAMINATION OF ORGAN SYSTEMS/BODY AREAS: Constitutional: Vital signs per nursing GENERAL: Appears slightly uncomfortable HEAD: Normal with no signs of head trauma. EYES: EOMI, conjunctiva normal ENT: Hearing grossly intact LUNGS: Nonlabored breathing. HEART: [Regular rate and rhythm] ABD: [Soft], very minimally uncomfortable to deep palpation right upper quadrant, no right lower quadrant tenderness EXT: Normal range of motion SKIN: [No rashes or lesions.] NEURO: [Alert and oriented x 3. No gross focal sensory or strength deficits.] PSYCH: Normal affect Course Vital Signs Vital signs: Vital Signs Temperature 98.1 F 11/23/24 01:32 Pulse Rate 107 H 11/23/24 01:32 Respiratory Rate 20 11/23/24 01:32 Blood Pressure 107/79 11/23/24 01:32 Pulse Oximetry 100 11/23/24 01:32 Oxygen Delivery Room Air 11/23/24 01:32 Temperature 98.1 F 11/23/24 01:32 Pulse Rate 107 H 11/23/24 01:32 Respiratory Rate 20 11/23/24 01:32 Blood Pressure 107/79 11/23/24 01:32 Pulse Oximetry 100 11/23/24 01:32 Oxygen Delivery Room Air 11/23/24 01:32 MDM - Abdominal Pain MDM Narrative Medical decision making narrative: Patient presents at 7 weeks with right upper quadrant pain, nausea vomiting. On exam she initially appeared slightly uncomfortable, with some slight tenderness to the right upper quadrant but otherwise no severe distress. Bedside ultrasound performed by myself, shows very early intrauterine with normal heart rate, right upper quadrant ultrasound performed by myself shows gallbladder with possible early some sludge but no wall thickening or pericholecystic fluid, negative free fluid in right upper quadrant. Labs obtained shows just slightly elevated white count, otherwise normal LFTs, electrolytes, biliary labs. Urine is negative. On re-evaluation, patient looks and feels much better, she and family at bedside agreeable to outpatient management with strict return precautions and follow-up to her OBGYN. I did provide prescriptions for symptomatic management. Lab Data 11/23/24 01:42 11/23/24 01:42 Labs: Lab Results 11/23/24 11/23/24 Range/Units 01:42 02:28 WBC 11.8 H (4.5-10.0) K/mm3 RBC 4.37 (4.2-5.4) M/mm3 Hgb 12.8 (12.0-15.0) g/dL Hct 38.1 (37.0-47.0) % MCV 87.2 (80-100) fl MCH 29.3 (26-34) pg MCHC 33.6 (32-36) g/dl RDW 13.0 (11.5-14.5) % Plt Count 250 (150-375) k/mm3 MPV 9.6 (7.4-10.4) fl Immature Gran % (Auto) 0.3 (0-0.5) % Neut % (Auto) 58.8 (45.5-73.1) % Lymph % (Auto) 30.0 (18.3-44.2) % [place] % (Auto) 8.2 (2.6-8.5) % Eos % (Auto) 2.1 (0-4.4) % Baso % (Auto) 0.6 (0.2-1.2) % Lymph # (Auto) 3.53 H (0.9-3.2) K/mm3 [place] # (Auto) 1.0 H (0.1-0.6) K/mm3 Eos # (Auto) 0.3 (0-0.3) K/mm3 Baso # (Auto) 0.1 (0.0-0.1) K/mm3 Abs Immat Gran (auto) 0.04 H (0.00-0.031) K/mm3 Absolute Neuts (auto) 6.9 H (1.3-6.7) K/mm3 Absolute Nucleated RBC 0.000 (0.0-0.012) K/mm3 Nucleated RBC % 0.0 (0.0-0.2) % Sodium 133 L (137-145) mmol/L Potassium 3.6 (3.4-5.0) mmol/L Chloride 103 (98-107) mmol/L Carbon Dioxide 23 (22-30) mmol/L Anion Gap 7 (4-12) mmol/L BUN 8 (7-17) mg/dL Creatinine 0.53 L (0.7-1.0) mg/dL Estim Creat Clear Calc Not Reportable Estimated GFR > 60 (59 - ) Glucose 100 (65-110) mg/dL Calcium 8.8 (8.4-10.2) mg/dL Total Bilirubin 0.3 (0.2-1.3) mg/dL AST 19 (14-36) U/L ALT 11 (6-35) U/L Alkaline Phosphatase 50 (38-126) U/L Total Protein 7.2 (6.3-8.2) g/dL Albumin 4.0 (3.5-5.1) g/dL Lipase 75 (23-300) U/L Urine Color Pending Urine Appearance Pending Urine pH Pending Ur Specific [place] Pending Urine Protein Pending Urine Glucose (UA) Pending Urine Ketones Pending Ur Blood (Man) Pending Urine Nitrate Pending Urine Bilirubin Pending Urine Urobilinogen Pending Leukocyte Esterase Rfl Pending Discharge Plan Discharge Clinical Impression: Right upper quadrant abdominal pain Patient Disposition: Home Condition: Stable Instructions: Nausea and Vomiting in (ED), Abdominal Pain in (ED) Additional Instructions: Please follow up with your OBGYN; you can always return to the ER for any further issues especially if you develop worsening pain, fevers, nausea. You can try the medications as prescribed. Patient Language: German Prescriptions: New doxylamine-pyridoxine (vit B6) [Diclegis] 10-10 mg tablet,delayed release (DR/EC) 1 tablet PO BID PRN (Reason: nausea and vomiting) Qty: 20 0RF metoclopramide HCl [Reglan] 10 mg tablet 10 mg PO Q6H PRN (Reason: nausea and vomiting) Qty: 20 0RF acetaminophen [Tylenol Extra Strength] 500 mg tablet 1,000 mg PO Q6H PRN (Reason: pain) Qty: 50 0RF No Action albuterol sulfate 90 mcg/actuation HFA aerosol inhaler 2 puff inhalation QID PRN (Reason: shortness of breath or wheezing) Qty: 8.5 0RF Follow-up/Referrals: PHYSICIAN,FINISHER MACHINE [Primary Care Provider] -
[2024-11-23 02:41] LABS: Add Urine Microscopic? NO; Appearance Urine Clear (Clear); Glucose Urine UA Negative (Negative); Leukocyte Esterase Ur Negative LEU/UL (Negative); Nitrate Urine Negative (Negative); Specific Grav Ur 1.013 (1.001-1.035)
== END 2024-11-23 03:06 | disposition home or self-care (01) ==
PROVIDERS: Emergency Provider Emergency Medicine
DX: O26.91 Pregnancy related conditions, unspecified, first trimester (principal); Z3A.01 Less than 8 weeks gestation of pregnancy; R10.11 Right upper quadrant pain
CPT/HCPCS: 36415; 80053; 81003; 83690; 85025; 96361; 96374; 96375; 99284; A9270; J2765; J7120